=== PATIENT | female | born 1955 | race Caucasian/White ===

== ENCOUNTER 2019-09-17 14:42 | Emergency (ER) | payer OTHER, SELFPAY ==
--- NOTE | ~2019-09-17 | XR_ITS ---
XR knee RT 3V DATE: 09/17/2019 15:31 INDICATION: Twisted knee twice; lateral pain TECHNIQUE: 3 views COMPARISON: None FINDINGS: No fracture or dislocation, periosteal reaction or bone destruction. No significant joint effusion is detected. Joint spaces are well preserved. No chondrocalcinosis or radiopaque intra-art icular loose body. IMPRESSION: No significant abnormality Reviewed, dictated and finalized at location A. IMPRESSION: No significant abnormality
[2019-09-17 15:03] VITALS: BP 127/88; PULSE 94; RESP 16; TEMP 37.2; O2SAT 99
--- NOTE | 2019-09-17 15:04 | ED.LOWEXIN ---
HPI - Extremity Injury (Lower) General Chief Complaint: Extremity Injury, Lower Stated Complaint: injury knee pain Time Seen by Provider: 09/17/19 15:00 Source: patient Mode of arrival: ambulatory Limitations: no limitations History of Present Illness HPI Narrative: Rosie Miller is a 54 yo female with no PMH who comes to express care for x-ray of right knee after straining it last week while working outside and straining again yesterday. Mild swelling, states is painful particularly to try to stand up and bed feels like it needs support and feels like it is unstable on lateral side Related Data Allergies Allergy/AdvReac Type Severity Reaction Status Date / Time No Known Allergies Allergy Verified 09/17/19 15:03 Review of Systems Review of Systems: Narrative: CONSTITUTIONAL: Denies fever, chills, sweats. EYES: Denies visual changes, redness, discharge. ENT: Denies rhinorrhea, congestion, sore throat, otalgia. CARDIOVASCULAR: Denies chest pain, palpitations, edema. RESPIRATORY: Denies dyspnea, wheezing, cough GASTROINTESTINAL: Denies abdominal pain, nausea, vomiting, diarrhea. GENITOURINARY: Denies dysuria, hematuria, abnormal discharge SKIN: Denies rash or itching. NEUROLOGIC: Denies numbness, or focal weakness. PSYCHIATRIC: Denies anxiety or depression. Extremity: Right knee pain and swelling PMFSH Family History Family History Other No acute medical problems Social History Social History (Updated 09/17/19 @ 15:15 by Rossy Edwards CNP) Smoking status: Never smoker Alcohol intake: never Comments At time of signature, I agree with nursing past medical, surgical, social and family history. There is no relevant family history pertinent to the presenting complaint. Exam Narrative: Exam Narrative: GENERAL: This is a well-nourished, well-developed patient, in mild distress. HEAD: normocephalic, atraumatic. EYES: Sclera clear/white. Vision is grossly intact. EARS: External ears normal, . Hearing grossly intact. NOSE: External nose normal without nasal discharge, nares without redness, no rhinorrhea. THROAT: Mucous membranes moist, NECK: Neck supple, CARDIOVASCULAR: Regular rate and rhythm without murmurs, gallops, or rubs. RESPIRATORY: Clear to auscultation. Breath sounds equal bilaterally. No wheezes, rales, or rhonchi. GASTROINTESTINAL: Abdomen soft, SKIN: warm, intact with no suspicious lesions or rash, good texture and turgor. NEURO: awake, alert, and oriented to person, place and time. There were no obvious focal neurologic abnormalities. Steady gait EXTREMITIES: Difficulty with ROM exceed 90 or standing, sitting long periods, describes R lateral pain of knee; sttaes is 10/10 although strength maintained BACK: Nontender without deformity Course Course Emergency Course: Xray R knee megaive for acute pathology naprosyn and tramadol; follow up with orthopedist Vital Signs Vital signs: Vital Signs Temperature 99.0 F 09/17/19 15:03 Pulse Rate 94 09/17/19 15:03 Respiratory Rate 16 09/17/19 15:03 Blood Pressure 127/88 09/17/19 15:03 Pulse Oximetry 99 09/17/19 15:03 Temperature 99.0 F 09/17/19 15:03 Pulse Rate 94 09/17/19 15:03 Respiratory Rate 16 09/17/19 15:03 Blood Pressure 127/88 09/17/19 15:03 Pulse Oximetry 99 09/17/19 15:03 MDM - Extremity Injury (Lower) Differential Diagnosis Differential diagnosis: Likely acute internal derangement of knee and other (sprain of R knee, dislocation of knee) Discharge Plan Discharge Clinical Impression: Right knee sprain Qualifiers: Encounter type: initial encounter Involved ligament of knee: lateral collateral ligament Qualified Code(s): S83.421A - Sprain of lateral collateral ligament of right knee, initial encounter Patient Disposition: Home, Self-Care Condition: Stable Instructions: Knee Sprain (DC) Prescriptions: New naproxen [Naprosyn] 50
== END 2019-09-17 15:57 | disposition home or self-care (01) ==
PROVIDERS: Emergency Provider Nurse Practitioner
DX: S83.421A Sprain of lateral collateral ligament of right knee, initial encounter (principal); X58.XXXA Exposure to other specified factors, initial encounter
CPT/HCPCS: 73562; 99213; G0463

== ENCOUNTER 2019-09-21 22:20 | Inpatient (IN) | payer OTHER, SELFPAY ==
--- NOTE | ~2019-09-21 | MR_ITS ---
EXAMINATION: MR knee RT wo con DATE: 09/24/2019 12:40 INDICATION: Right knee pain. TECHNIQUE: Magnetic resonance imaging (MRI) of the right knee was performed without intravenous contr ast. Sequences included axial PD-weighted FS FSE, coronal PD-weighted FSE and PD-weighted FS FSE, sag ittal PD-weighted FSE, and sagittal T2-weighted FS FSE. COMPARISON: Right knee CT 09/21/2019 FINDINGS: Medial compartment: Medial meniscus is normal. There is cartilage surface irregularity of tibial condyle and femoral cond yle. There are tiny marginal osteophytes. Lateral compartment: Lateral meniscus is normal. There is shallow partial-thickness cartilage loss of femoral condyle and cartilage surface irregularity of tibial condyle. There is a small subchondral insufficiency fracture of femoral condyle with subchondral sclerosis and bone marrow edema, but without significant cortica l depression. Patellofemoral compartment: There is cartilage surface irregularity of patella with mild subchondral edema-like signal intensity of the lateral facet. There is cartilage surface irregularity of trochlea. Ligaments and tendons: The anterior and posterior cruciate ligaments are normal. Medial collateral ligament and lateral juliana ateral ligament complex are normal. There is mild patellar tendinopathy. Fluid: There is a small knee joint effusion. There is trace fluid in a Jose's cyst. IMPRESSION: 1. Subchondral insufficiency fracture of lateral femoral condyle. 2. Mild tricompartmental chondrosis. 3. Small knee joint effusion. Reviewed, dictated and finalized at location A.
--- NOTE | ~2019-09-21 | US_ITS ---
EXAMINATION: US venous doppler LE RT DATE: 09/23/2019 14:07 INDICATION: Right lower limb pain. TECHNIQUE: Grayscale ultrasound images without and with compression and Doppler ultrasound images of the right lower extremity veins were obtained. COMPARISON: CT 09/21/2019 FINDINGS: The visualized portions of right common femoral vein, profunda (deep) femoral vein, femoral vein, and greater saphenous vein outflow are patent. There is thrombus in popliteal, soleus, and peroneal and posterior tibial veins. IMPRESSION: 1. Deep vein thrombosis involving right popliteal, soleus, and peroneal and posterior tibial veins. Reviewed, dictated and finalized at location A. IMPRESSION: 1. Deep vein thrombosis involving right popliteal, soleus, and peroneal and po sterior tibial veins.
--- NOTE | ~2019-09-21 | CT_ITS ---
EXAMINATION: CT knee RT wo con EXAM DATE: 09/21/2019 23:56 INDICATION: Right knee pain, fell twice today. TECHNIQUE: Spiral CT knee RT wo con was performed right knee Axial, coronal and sagittal images were reviewed. The dose-length product (DLP) for this examination was 405.46 mGy-cm. The exposure was t ailored according to patient size (auto mA exposure control), and iterative reconstruction (ASIR) was used as additional dose reduction technique. Correlation is made to x-ray from 09/17/2019. FINDINGS: There are no acute right knee fractures or dislocations identified. There is no subcutaneo us gas. The soft tissue is unremarkable. There are no radiopaque foreign bodies. Trace joint flui d. Cruciate ligaments appear intact. There is minimal primary osteoarthritis. IMPRESSION: Minimal right knee osteoarthritis. Reviewed, dictated and finalized at location A.
--- NOTE | ~2019-09-21 | MR_ITS ---
EXAMINATION: MR lower leg RT wo con DATE: 09/24/2019 12:40 INDICATION: Right knee pain. TECHNIQUE: Magnetic resonance imaging (MRI) of the right tibia and fibula was performed without intra venous contrast. Sequences included axial, coronal, and sagittal T1-weighted FSE and STIR FSE. COMPARISON: Right knee CT 09/21/2019, ultrasound 09/23/2019 FINDINGS: Bone alignment is normal. No fracture. Bone marrow signal intensity is normal. The muscles demonstrate normal signal intensity. The soleus, peroneal, and posterior tibial veins demonstrate are as of enlargement with filling defects correlating with the ultrasound abnormalities, consistent with thrombus. Subcutaneous edema is noted. IMPRESSION: 1. Deep vein thrombosis involving the right soleus, peroneal, and posterior tibial veins. Reviewed, dictated and finalized at location A. IMPRESSION: 1. Deep vein thrombosis involving the right soleus, peroneal, and posterior tib ial veins.
--- NOTE | ~2019-09-21 | XR_ITS ---
EXAMINATION: XR chest 2V DATE: 09/24/2019 12:40 INDICATION: Acute deep vein thrombosis. TECHNIQUE: Frontal and lateral views of the chest were obtained. COMPARISON: None. FINDINGS: There is mild elevation of left hemidiaphragm. There is mild atelectasis at left lung base. No pleural effusion or pneumothorax. The heart size is normal. IMPRESSION: 1. Mild atelectasis at left lung base. Reviewed, dictated and finalized at location A.
--- NOTE | ~2019-09-21 | NM_ITS ---
EXAMINATION: NM pulmonary perfusion DATE: 09/24/2019 11:12 INDICATION: Acute deep vein thrombosis. TECHNIQUE: 5.3 mCi Tc-99m MAA was administered intravenously for perfusion images. Scintigraphic ambreen ges of the chest were obtained. COMPARISON: chest two views 09/24/19 FINDINGS: Perfusion images show large and moderate sized defects in the upper lobes. ] IMPRESSION: 1. Pulmonary embolism present (high probability). Reviewed, dictated and finalized at location A.
[2019-09-21 22:19] VITALS: BP 158/75; PULSE 91; RESP 14; TEMP 36.9; O2SAT 100
--- NOTE | 2019-09-21 22:35 | ED.LOWEXIN ---
HPI - Extremity Injury (Lower) General Chief Complaint: Extremity Injury, Lower Stated Complaint: L KNEE PAIN Time Seen by Provider: 09/21/19 22:23 History of Present Illness HPI Narrative: Pain in the right knee for the past month. Worse for the past week. Had outpatient x-rays done which were negative. Since that time she has not been able to walk. She says that any time she tries to bear weight her involuntarily contracts into her chest. She has fallen twice due t this. When this happens the pain is severe. Related Data Home Medications Medication Instructions Recorded Confirmed aspirin [Adult Low Dose Aspirin] 81 mg PO DAILY 09/22/19 09/22/19 loratadine [Claritin] 10 mg PO DAILY 09/22/19 09/22/19 Allergies Allergy/AdvReac Type Severity Reaction Status Date / Time No Known Allergies Allergy Verified 09/17/19 15:03 Review of Systems Review of Systems: All systems reviewed & are unremarkable except as noted in HPI and below Constitutional: Constitutional: Denies chills, Denies fever(s) and Denies weakness Cardiovascular: Cardiovascular: Denies chest pain Respiratory: Respiratory: Denies dyspnea Gastrointestinal: Gastrointestinal: Denies abdominal pain and Denies nausea Musculoskeletal: Musculoskeletal: Denies back pain and Reports arthralgias Neurologic: Denies dizziness and Denies weakness PMFSH Family History Family History Father Prostate carcinoma Other No acute medical problems Social History Social History Smoking packs per day: 0.5 Smoking cigarettes per day: 10.0 Smoking status: Current every day smoker Tobacco type: cigarettes Second hand tobacco smoke exposure: Yes Alcohol intake: current Drinks per week: 1 Substance use: never Substance use type: does not use Gender identity (if verbalized by the patient): Female Spiritual care concerns: No Exam Const: General: healthy appearing, no acute distress and alert Nutritional Appearance: well nourished Orientation/consciousness: patient oriented x3 HENMT: Head: normal to inspection Resp: Effort & Inspection: normal respiratory effort Auscultation: clear to auscultation bilaterally Cardio: Rate: regular rate Rhythm: regular rhythm Other: 2+ DP on the right Skin: General skin exam: normal color Rashes: no rashes Wounds: no wounds Neuro: General: patient oriented x3, moves all extremities, no focal motor deficits and CN's II-XI intact bilaterally Speech: normal speech Extrem: General: normal to inspection Other: Tender over inferiorlateral right knee. Course Vital Signs Vital signs: Vital Signs Temperature 36.9 C 09/21/19 22:19 Pulse Rate 91 09/21/19 22:19 Respiratory Rate 14 09/21/19 22:19 Blood Pressure 158/75 H 09/21/19 22:19 Pulse Oximetry 100 09/21/19 22:19 Temperature 36.6 C 09/22/19 05:03 Pulse Rate 69 09/22/19 05:03 Respiratory Rate 16 09/22/19 05:03 Blood Pressure 130/65 09/22/19 05:03 Pulse Oximetry 99 09/22/19 05:03 MDM - Extremity Injury (Lower) MDM Narrative Medical decision making narrative: Reviewed negative x-ray. CT obtained to ruleout occult fracture. attempted ambulation without success. Tried small dose of valium to prevent spasm. again she fell back into the bed crying. She lives alone and will not be able to be discharged if she cannot ambulate. Medical Records Attestation: I reviewed the patient's medical records. Discharge Plan Discharge Clinical Impression: Right knee pain, Ambulatory dysfunction Interventions: Discharge Disposition Last Done: 09/22/19 04:38 IV Stop Time Documented Last Done: 09/22/19 04:38 Discharge Date/Time: 09/22/19 04:35
--- NOTE | 2019-09-22 01:16 | PC.NURSE ---
Patient tried to put weight on right knee during ambulation assessment. Once patient put weight on knee, she sat back in bed and drove her knee into her chest. Patient stated the pain is too much and said now you see what happens. DEE Antunez notified.
[2019-09-22 01:38] VITALS: BP 138/75; PULSE 82; RESP 16; O2SAT 100
--- NOTE | 2019-09-22 03:37 | PC.NURSE ---
Report taken from JASWANT Lee.
[2019-09-22 04:38] VITALS: BP 147/71; PULSE 84; RESP 18; O2SAT 97
[2019-09-22 05:03] VITALS: BP 130/65; PULSE 69; RESP 16; TEMP 36.6; O2SAT 99
--- NOTE | 2019-09-22 05:44 | PM.IMHP ---
H&P: HPI History of Present Illness Chief complaint: Ambulatory dysfunction, knee pain Narrative: This is a 64 year old female with known seasonal allergies who presented to the hospital with a complaint of right knee pain and ambulatory dysfunction. She began having right knee pain approximately 2 weeks ago after gardening outside. She continued to have right knee pain while at work last week but was able to still ambulate. She describes that she has suffered various falls secondary to her right leg spasming and her knee retracting forcefully and striking her chest. She first experienced this when she was going up a step but then also experienced it last night while just standing. She could not tolerate ambulating and has not been able to bear weight on her right leg. She denies any trauma or injury to her right knee. She has never had any surgery or procedures done on her right knee. She also denies any fever, chills, swelling of her right knee, leg redness or edema. ER provider has obtained a right knee CT scan which does not demonstrate any small fractures. The patient has no other complaints. We have been asked to admit the patient to the hospital as she has ambulatory dysfunction. Review of Systems Review of Systems: All systems reviewed & are unremarkable except as noted in HPI and below PMFSH Past Medical History Medical History Iliotibial band syndrome affecting right lower leg Family History Family History Father Prostate carcinoma Other No acute medical problems Social History Social History Smoking packs per day: 0.5 Smoking cigarettes per day: 10.0 Smoking status: Current every day smoker Tobacco type: cigarettes Second hand tobacco smoke exposure: Yes Alcohol intake: current Drinks per week: 1 Substance use: never Substance use type: does not use Occupation/Education: occupation 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[place] Gender identity (if verbalized by the patient): Female Spiritual care concerns: No Meds Home Medications and Allergies Home Medications Medication Instructions Recorded Confirmed Type naproxen [Naprosyn] 500 mg PO BID PRN #20 tablet 09/17/19 09/22/19 Rx aspirin [Adult Low Dose Aspirin] 81 mg PO DAILY 09/22/19 09/22/19 History loratadine [Claritin] 10 mg PO DAILY 09/22/19 09/22/19 History Allergies Allergy/AdvReac Type Severity Reaction Status Date / Time No Known Allergies Allergy Verified 09/17/19 15:03 Vital Signs Vital Signs - 24 hr 09/21/19 22:19 09/22/19 01:38 09/22/19 04:38 Temperature 36.9 C Pulse Rate 91 82 84 Respiratory Rate 14 16 18 Blood Pressure 158/75 H 138/75 147/71 H Pulse Oximetry 100 100 97 09/22/19 05:03 Temperature 36.6 C Pulse Rate 69 Respiratory Rate 16 Blood Pressure 130/65 Pulse Oximetry 99 Exam Const: General: cooperative, no acute distress, alert and awake Nutritional Appearance: well nourished Orientation/consciousness: patient oriented x3 HENMT: Head: normal to inspection General nose exam: Normal external nose present Face and sinus: normal facial exam Mouth: Yes Normal oral and palatal mucosa present and Yes oropharynx normal Eyes: Pupils: Equal, round and reactive pupils present EOM: EOMs intact bilaterally Neck: Neck: supple and no JVD Thyroid: thyroid normal Lymphatic: lymphadenopathy not noted Resp: Effort & Inspection: normal respiratory effort Auscultation: clear to auscultation bilaterally Cardio: Rate: regular rate Rhythm: regular rhythm Heart sounds: no murmurs GI: Inspection: normal to inspection Auscultation: normal bowel sounds Skin: General skin exam: normal color and no rashes or lesions noted Neuro: General: patient oriented x3 Cranial nerves: Ye
[2019-09-22 06:00] VITALS: BP 130/65; PULSE 69; RESP 16; TEMP 36.6; O2SAT 99
[2019-09-22 07:49] LABS: Basophils Absolute Auto 0.1 K/mm3 (0.0-0.1); Basophils Percent Auto 0.8 % (0.2-1.2); Eosinophils Absolute Auto 0.2 K/mm3 (0-0.3); Eosinophils Percent Auto 2.7 % (0-4.4); Hematocrit 38.5 % (37.0-47.0); Hemoglobin 12.7 g/dL (12.0-15.0); Immature Granulocyte Absolute 0.04 K/mm3 (0.00-0.031); Immature Granulocyte Percent A 0.5 % (0-0.5); Lymphocytes Absolute Auto 2.67 K/mm3 (0.9-3.2); Lymphocytes Percent Auto 30.9 % (18.3-44.2); Mean Corpuscular Volume 93.9 fl (80-100); Mean Platelet Volume 11.1 fl (7.4-10.4); Monocytes Absolute Auto 0.9 K/mm3 (0.1-0.6); Neutrophils Absolute Auto 4.8 K/mm3 (1.3-6.7); Neutrophils Percent Auto 55.1 % (45.5-73.1); Platelet Count Result 247 k/mm3 (150-375); Red Cell Distribution Width 14.3 % (11.5-14.5); White Blood Count 8.6 K/mm3 (4.5-10.0)
[2019-09-22 08:01] LABS: Blood Urea Nitrogen 10 mg/dL (7-17); Carbon Dioxide 28 mmol/L (22-30); Chloride 104 mmol/L (98-107); Estimated CRCL calculation 97 ml/min; Estimated Glomerular Filt Rate > 60; Glucose 99 mg/dL (65-105); Potassium 3.5 mmol/L (3.4-5.0); Sodium 139 mmol/L (137-145)
--- NOTE | 2019-09-22 10:10 | PC.NURSE ---
Call to pharmacy and requested 0900 Aspirin be sent to floor for administration.
[2019-09-22] MEDS: LORATADINE 10 MG TABLET PO (10:11)
[2019-09-22] MEDS: NAPROXEN 500 MG TABLET PO (10:12)
--- NOTE | 2019-09-22 10:17 | PM.CNOR ---
Assessment and Plan Assessment and plan (1) Iliotibial band syndrome affecting right lower leg: Code(s): M76.31 - Iliotibial band syndrome, right leg Status: Acute Assessment and Plan: Consultation for 64-year-old woman with acute onset right knee pain and involuntary spasm. Radiographs and CT scan of the right knee show no acute abnormality. History and physical exam reviewed with the patient. Suspect iliotibial band tightness and pain causing spasm and difficulty with ambulation. Recommend physical therapy and pain control with weight-bearing as tolerated. No surgical indication at this time. Thank you for allowing me to participate in her care. (2) Right knee pain: Qualifiers: Chronicity: acute Qualified Code(s): M25.561 - Pain in right knee Code(s): M25.561 - Pain in right knee Status: Acute History of Present Illness HPI Consult date: 09/22/19 Requesting physician: Donnie Reese MD Chief complaint: Ambulatory dysfunction, knee pain Narrative: Pleasant 64-year-old female that I have been asked to see in consultation for right knee pain and involuntary spasm of the leg. Patient states about 2 weeks ago was doing some work in her garden and yd. Noted strain in both knees. The left 1 resolved. The right 1 however has continued to progress with pain over the lateral aspect. It is sharp shooting radiating type pain. She had difficulty with work last week and presented to the [facility]. Radiographs were reportedly negative. She tried using a knee support and some conservative measures. She return to work on September 18, however had increased pain with weight-bearing and developed an involuntary spasm where the hip and knee would flex up. Yesterday she was unable to put weight on the right leg and had difficulty with ambulation. She presented to the emergency room. Pain with weight-bearing has persisted. She denies low back pain. Denies numbness or tingling. She states that the right leg feels weak but otherwise notes no focal weakness. No problems with the left leg. She has noted some right ankle and foot swelling and strain since all of the started and has been using an ankle support over the past 2 days. Review of Systems Constitutional: Constitutional: Denies fever(s) Eyes: Eyes: Denies blurry vision ENT: Reports Normal hearing present Cardiovascular: Cardiovascular: Denies chest pain and Denies dyspnea Respiratory: Respiratory: Denies dyspnea and Denies wheezing Gastrointestinal: Gastrointestinal: Denies abdominal pain Genitourinary: Genitourinary: Denies urinary urgency Musculoskeletal: Musculoskeletal: Reports as per HPI and Denies numbness Integumentary/Breasts: Skin/Breast: Denies changing lesions and Denies sores Neurologic: Reports Normal hearing present, Denies behavioral changes, Denies confusion, Denies numbness and Denies convulsions Psychiatric: Psychiatric: Denies behavioral changes, Denies confusion and Denies hallucinations Endocrine: Endocrine: Denies heat intolerance Hematologic/Lymphatic: Hematologic/Lymphatic: Denies easy bleeding Allergic/Immunologic: Allergic/Immunologic: Denies wheezing PMFSH Family History Family History Father Prostate carcinoma Other No acute medical problems Social History Social History (Updated 09/22/19 @ 10:20 by Ted Neal MD) Smoking packs per day: 0.5 Smoking cigarettes per day: 10.0 Smoking status: Current every day smoker Tobacco type: cigarettes Second hand tobacco smoke exposure: Yes Alcohol intake: current Drinks per week: 1 Substance use: never Substance use type: does not use Occupation/Education: occupation 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
--- NOTE | 2019-09-22 11:19 | PM.IMPN ---
Progress Note: A&P Assessment and Plan (1) Iliotibial band syndrome affecting right lower leg: Code(s): M76.31 - Iliotibial band syndrome, right leg Status: Acute Assessment and Plan: Seen by orthopedic, continue PT/OT, continue pain control, hopeful discharge tomorrow, pt not able to weight bear today. (2) Right knee pain: Qualifiers: Chronicity: acute Qualified Code(s): M25.561 - Pain in right knee Code(s): M25.561 - Pain in right knee Status: Acute Assessment and Plan: The patient has been admitted for observation. 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 Pt is very upset that she cannot walk, states her leg just contracted under her. Seen by orthopedic pt has ITB, will need physical theraphy prior to dischrage, hopeful discharge tomorrow. Review of Systems Integumentary/Breasts: Comments: Leg pain, contracture of leg, immobility Exam Const: General: cooperative, no acute distress, alert and awake Nutritional Appearance: well nourished Orientation/consciousness: patient oriented x3 Resp: Effort & Inspection: normal respiratory effort Auscultation: clear to auscultation bilaterally Cardio: Rate: regular rate Rhythm: regular rhythm Heart sounds: no murmurs GI: Inspection: normal to inspection Auscultation: normal bowel sounds Neuro: General: patient oriented x3 Cranial nerves: Yes CN's II-XII intact bilaterally and Yes Equal, round and reactive pupils present Speech: normal speech Motor exam (neuro): 5/5 motor strength present throughout Sensory Exam: normal sensation Extrem: General: normal to inspection and no edema Right lower extremity: normal to inspection (Localised lateral tenderness no laxity in joint on ACL and MCL exam ) Objective Data Vital Signs Vital Signs: Vital Signs - 24 hr 09/21/19 22:19 09/22/19 01:38 09/22/19 04:38 Temperature 36.9 C Pulse Rate 91 82 84 Respiratory Rate 14 16 18 Blood Pressure 158/75 H 138/75 147/71 H Pulse Oximetry 100 100 97 09/22/19 05:03 09/22/19 06:00 Temperature 36.6 C 36.6 C Pulse Rate 69 69 Respiratory Rate 16 16 Blood Pressure 130/65 130/65 Pulse Oximetry 99 99 Intake/Output Intake/Output: Intake & Output 09/19/19 09/20/19 09/21/19 09/22/19 23:59 23:59 23:59 23:59 Intake Total 240 Output Total 0 Balance 240 Meds/Results Medications: Active Medications Generic Name Dose Route Start Last Admin Trade Name Freq PRN Reason Stop Dose Admin Hydrocodone Bitart/Acetaminophen 1 tab 09/22/19 05:57 09/22/19 06:13 [place] 5-325 Mg PO 1 tab Q4H PRN Administration Moderate Pain (4-6) Aspirin 81 mg 09/22/19 09:00 Aspirin Ec PO DAILY ALEX Cyclobenzaprine HCl 10 mg 09/22/19 03:56 Flexeril PO Q8HR PRN Muscle Spasm Loratadine 10 mg 09/22/19 09:00 09/22/19 10:11 Claritin PO 10 mg DAILY ALEX Administration Lorazepam 0.5 mg 09/22/19 05:56 Ativan Tab PO 09/23/19 07:00 Q6H PRN Anxiety Naproxen 500 mg 09/22/19 05:58 09/22/19 10:12 Naproxen PO 500 mg BID PRN Administration PAIN RATED 1-3 Labs Labs: Laboratory Results - last 24 hr 09/22/19 09/22/19 07:31 07:31 WBC 8.6 RBC 4.10 L Hgb 12.7 Hct 38.5 MCV 93.9 MCH 31.0 MCHC 33.0 RDW 14.3 Plt Count 247 MPV 11.1 H Immature Gran % (Auto) 0.5 Neut % (Auto) 55.1 Lymph % (Auto) 30.9 Sullivan % (Auto) 10.0 H Eos % (Auto) 2.7 Baso % (Auto) 0.8 Lymph # (Auto) 2.67 Sullivan # (Auto) 0.9 H Eos # (Auto) 0.2 Baso # (Auto) 0.1 Abs Immat Gran (auto) 0.04 H Absolute Neuts (auto) 4.8 Absolute Nucleated RBC 0.0 Nucleated RBC % 0.0 Sodium 139 Potassium 3.5 Chloride 104 Carbon Dioxide 28 BUN 10 Creatinine 0.60 L Estim Creat Clear Calc 97 Estimated GFR > 60 Glucose 99 Calciu
--- NOTE | 2019-09-22 11:33 | PC.NURSE ---
Second call to pharmacy to request 0900 dose of Aspirin be sent to floor for administration.
[2019-09-22] MEDS: CYCLOBENZAPRINE HCL 10 MG TABLET PO ×2 (11:35→19:57)
[2019-09-22 14:00] VITALS: BP 116/60; PULSE 86; RESP 20; TEMP 36.8; O2SAT 99
[2019-09-22] MEDS: ASPIRIN 81 MG ENTERIC TABLET PO (14:21)
[2019-09-22 22:00] VITALS: BP 123/70; PULSE 77; RESP 16; TEMP 36.6; O2SAT 97
[2019-09-23] MEDS: LORAZEPAM 0.5 MG TABLET PO ×2 (01:26→22:42)
[2019-09-23] MEDS: CYCLOBENZAPRINE HCL 10 MG TABLET PO ×2 (05:56→20:16)
[2019-09-23 05:58] VITALS: BP 123/67; PULSE 83; RESP 16; TEMP 36.7; O2SAT 96
[2019-09-23] MEDS: ASPIRIN 81 MG ENTERIC TABLET PO (08:40)
[2019-09-23] MEDS: LORATADINE 10 MG TABLET PO (08:40)
--- NOTE | 2019-09-23 10:45 | PM.PNORT ---
Progress Note: A&P Assessment and Plan (1) Iliotibial band syndrome affecting right lower leg: Code(s): M76.31 - Iliotibial band syndrome, right leg Status: Acute Assessment and Plan: Continued complaints of right lateral knee pain and limitations with ambulation due to spasming of the RLE when pressure is applied to the leg. Radiographs and CT scan of the right knee show no acute abnormality. As previously indicated, suspect iliotibial band tightness and pain causing spasm and difficulty with ambulation. Add lidocaine patch to the lateral knee to assist in pain control. Ice. Recommended continuation of physical therapy with weight-bearing as tolerated. Walker for fall prevention. No surgical indication at this time. (2) Right knee pain: Qualifiers: Chronicity: acute Qualified Code(s): M25.561 - Pain in right knee Code(s): M25.561 - Pain in right knee Status: Acute Subjective Subjective Date/Time Seen: 09/23/19 10:45 Patient sitting up in chair. Per patient report, she attempted to work with PT/OT but was unable to walk far. She is not in pain when at rest, only when pressure applied to the RLE. She does not feel the flexeril is workinng for muscle spasms. She is concerned the pain is coming from the hamstring. Review of Systems Constitutional: Constitutional: Denies fever(s) Eyes: Eyes: Denies blurry vision ENT: Reports Normal hearing present Cardiovascular: Cardiovascular: Denies chest pain and Denies dyspnea Respiratory: Respiratory: Denies dyspnea and Denies wheezing Gastrointestinal: Gastrointestinal: Denies abdominal pain Genitourinary: Genitourinary: Denies urinary urgency Musculoskeletal: Musculoskeletal: Reports as per HPI and Denies numbness Integumentary/Breasts: Skin/Breast: Denies changing lesions and Denies sores Neurologic: Reports Normal hearing present, Denies behavioral changes, Denies confusion, Denies numbness and Denies convulsions Psychiatric: Psychiatric: Denies behavioral changes, Denies confusion and Denies hallucinations Endocrine: Endocrine: Denies heat intolerance Hematologic/Lymphatic: Hematologic/Lymphatic: Denies easy bleeding Allergic/Immunologic: Allergic/Immunologic: Denies wheezing Exam Const: General: healthy appearing; No in distress or confusion Orientation/consciousness: oriented to person, oriented to place, oriented to time and No confusion HENMT: Head: normal to inspection, normocephalic and atraumatic Eyes: Conjunctivae: conjunctivae normal Sclera: sclerae normal Neck: Neck: supple and nontender Resp: Effort & Inspection: normal respiratory effort and no audible wheezes Cardio: Rate: regular rate Rhythm: regular rhythm Skin: General skin exam: no rashes or lesions noted Neuro: General: oriented to person, oriented to place, oriented to time and No confusion Extrem: Right upper extremity: normal to inspection Left upper extremity: normal to inspection Right lower extremity: hip/thigh (ROM testing limited due to patient apprehension ) Details: normal to inspection; no tenderness and no swelling, knee Details: tenderness Location: of the lateral joint line and of the lateral joint line; not of the patella, not of the tibial tuberosity, not of the popliteal fossa, not of the medial joint line and not of the proximal tibia, swelling Location: of the proximal fibula and abnormal ROM Details: pain with active ROM during Details: in extension and pain with passive ROM during Details: in extension and foot; no edema Left lower extremity: normal to inspection, normal capillary refill and knee Other: Pain with palpation over the lateral aspect of the knee and proximal fibula. Mild swelling. NO redness/warmth or signs of infection. Psych: Affect: Anxious affect present Objective Data Vital Signs Vital Signs: Vital Signs - 24 hr 09/22/19 14:00 09/22/19 22:00 09/23/19 05:58 Temperature 36.8 C 36.6 C 36.7 C Pu
[2019-09-23] MEDS: LIDOCAINE 5% PATCH 1 PATCH TRANSDERM (10:55)
[2019-09-23 14:00] VITALS: BP 112/61; PULSE 82; RESP 15; TEMP 36.8; O2SAT 98
--- NOTE | 2019-09-23 14:49 | PCPTNOTE ---
The PT treatment was not completed today due to new multipe DVT diagnosis. Will continue once new medication is started and per Plan of Care frequency and duration.
--- NOTE | 2019-09-23 15:18 | PM.IMPN ---
Progress Note: A&P Assessment and Plan (1) Right knee pain: Qualifiers: Chronicity: acute Qualified Code(s): M25.561 - Pain in right knee Code(s): M25.561 - Pain in right knee Status: Acute Assessment and Plan: The patient has been admitted for observation. Pain control as needed. On physical exam it appears the patient may have a lateral meniscus injury or an inflammed right LCL. Ortho consult in am. Continue muscle relaxants as needed. 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 Pt is very upset that she cannot walk, states her leg just contracts below her right knee and fall, patient deneis any direct trauma, however patient was working in her yard for 12hrs 2 weeks prior to starting of her symptoms, she has difficulty with ambulation, Seen by orthopedic pt has ITB, recommending conservative managemtn, to further evaluate patient had dopplor of right leg and has DVT, will start on eliquis, will go V/Q scan, patient may need EMG of the leg, will consult neurologist, will need physical theraphy prior to dischrage, (2) Ambulatory dysfunction: Code(s): R26.2 - Difficulty in walking, not elsewhere classified Status: Acute Assessment and Plan: PT/OT evaluation when approrpiate. (3) Seasonal allergies: Code(s): J30.2 - Other seasonal allergic rhinitis Status: Chronic Assessment and Plan: Continue claritin. (4) Tobacco dependence: Code(s): F17.200 - Nicotine dependence, unspecified, uncomplicated Status: Chronic Assessment and Plan: I have counseled the patient regarding tobacco cessation for 4 minutes. She verbalized her agreement and understanding of same. 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 Pt is very upset that she cannot walk, states her leg just contracts below her right knee and fall, patient deneis any direct trauma, however patient was working in her yard for 12hrs 2 weeks prior to starting of her symptoms, she has difficulty with ambulation, Seen by orthopedic pt has ITB, recommending conservative managemtn, to further evaluate patient had dopplor of right leg and has DVT, will start on eliquis, will go V/Q scan, patient may need EMG of the leg, will consult neurologist, will need physical theraphy prior to dischrage, Review of Systems Review of Systems: All systems reviewed & are unremarkable except as noted in HPI and below Exam Const: General: comfortable and no acute distress HENMT: General nose exam: Normal nares present Mouth: Yes moist mucous membranes Eyes: General: appearance normal, both eyes and all related structures Sclera: sclerae normal Resp: Effort & Inspection: normal respiratory effort Auscultation: clear to auscultation bilaterally Cardio: Rate: regular rate Rhythm: regular rhythm GI: Other: not distended Neuro: Speech: normal speech Sensory Exam: normal sensation Extrem: Other: right lower extremity there no swelling, erythema or induration, patient is able siting in the chair able to flex and extend the knee and cross right leg over to left leg without any symptoms Psych: Affect: Anxious affect present Objective Data Vital Signs Vital Signs: Vital Signs - 24 hr 09/22/19 22:00 09/23/19 05:58 09/23/19 14:00 Temperature 97.9 F 98.1 F 98.2 F Pulse Rate 77 83 82 Respiratory Rate 16 16 15 Blood Pressure 123/70 123/67 112/61 Pulse Oximetry 97 96 98 Intake/Output Intake/Output: Intake & Output 09/20/19 09/21/19 09/22/19 09/23/19 23:59 23:59 23:59 23:59 Intake Total 1430 920 Output Total 1350 1200 Balance 80 -280 Meds/Results Medications: Active Medications Generic Name Dose Route Start Last Admin Trade Name Freq PRN Reason Stop Dose Admin Hydrocodone Bitart/Acetaminophen 1 tab 09/22/19 05:57 09/23/19 08:44 [place] 5-325 Mg PO 1 tab Q4H GA
[2019-09-23 20:00] VITALS: PULSE 82; RESP 15; O2SAT 98
[2019-09-23] MEDS: APIXABAN 5 MG TABLET 10 MG PO (20:13)
[2019-09-23 22:00] VITALS: BP 121/64; PULSE 73; RESP 18; TEMP 37.2; O2SAT 97
[2019-09-24 06:00] VITALS: BP 111/67; PULSE 76; RESP 18; TEMP 36.7; O2SAT 93
--- NOTE | 2019-09-24 07:49 | PM.PNORT ---
Progress Note: A&P Assessment and Plan (1) Iliotibial band syndrome affecting right lower leg: Code(s): M76.31 - Iliotibial band syndrome, right leg Status: Acute Assessment and Plan: Continued complaints of right lateral knee pain and limitations with ambulation due to spasming of the RLE when pressure is applied to the leg. Radiographs and CT scan of the right knee show no acute abnormality. As previously indicated, suspect iliotibial band tightness and pain causing spasm and difficulty with ambulation. Lidocaine patch to the lateral knee to assist in pain control. Ice. Recommended continuation of physical therapy with weight-bearing as tolerated. Walker for fall prevention. No surgical indication at this time. (2) Right knee pain: Qualifiers: Chronicity: acute Qualified Code(s): M25.561 - Pain in right knee Code(s): M25.561 - Pain in right knee Status: Acute (3) DVT of lower extremity (deep venous thrombosis): Qualifiers: Affected thrombotic vein of extremity: peroneal Chronicity: acute Laterality: right Qualified Code(s): I82.451 - Acute embolism and thrombosis of right peroneal vein Code(s): I82.409 - Acute embolism and thrombosis of unspecified deep veins of unspecified lower extremity Status: Acute Assessment and Plan: Ultrasound yesterday shows DVT of the right lower leg veins. Anticoagulation started. Will sign off at this time. Follow-up with primary care physician for DVT and anticoagulation recommended. Subjective Subjective Date/Time Seen: 09/24/19 07:49 Right knee pain. Ultrasound test of the right leg done yesterday shows DVT of the lower leg veins. Patient with no history or family history of DVT. Review of Systems Constitutional: Constitutional: Denies fever(s) Eyes: Eyes: Denies blurry vision ENT: Reports Normal hearing present Cardiovascular: Cardiovascular: Denies chest pain and Denies dyspnea Respiratory: Respiratory: Denies dyspnea and Denies wheezing Gastrointestinal: Gastrointestinal: Denies abdominal pain Genitourinary: Genitourinary: Denies urinary urgency Musculoskeletal: Musculoskeletal: Reports as per HPI and Denies numbness Integumentary/Breasts: Skin/Breast: Denies changing lesions and Denies sores Neurologic: Reports Normal hearing present, Denies behavioral changes, Denies confusion, Denies numbness and Denies convulsions Psychiatric: Psychiatric: Denies behavioral changes, Denies confusion and Denies hallucinations Endocrine: Endocrine: Denies heat intolerance Hematologic/Lymphatic: Hematologic/Lymphatic: Denies easy bleeding Allergic/Immunologic: Allergic/Immunologic: Denies wheezing Exam Const: General: healthy appearing; No in distress or confusion Orientation/consciousness: oriented to person, oriented to place, oriented to time and No confusion HENMT: Head: normal to inspection, normocephalic and atraumatic Eyes: Conjunctivae: conjunctivae normal Sclera: sclerae normal Neck: Neck: supple and nontender Resp: Effort & Inspection: normal respiratory effort and no audible wheezes Cardio: Rate: regular rate Rhythm: regular rhythm Skin: General skin exam: no rashes or lesions noted Neuro: General: oriented to person, oriented to place, oriented to time and No confusion Extrem: Right upper extremity: normal to inspection Left upper extremity: normal to inspection Right lower extremity: hip/thigh (ROM testing limited due to patient apprehension ) Details: normal to inspection; no tenderness and no swelling, knee Details: tenderness Location: of the lateral joint line and of the lateral joint line; not of the patella, not of the tibial tuberosity, not of the popliteal fossa, not of the medial joint line and not of the proximal tibia, swelling Location: of the proximal fibula and abnormal ROM Details: pain with active ROM during Details: in extension and pain with passive ROM during
[2019-09-24 07:58] LABS: Hematocrit 38.7 % (37.0-47.0); Hemoglobin 12.7 g/dL (12.0-15.0); Mean Corpuscular HGB Conc 32.8 g/dl (32-36); Mean Corpuscular Hemoglobin 30.5 pg (26-34); Mean Corpuscular Volume 92.8 fl (80-100); Mean Platelet Volume 11.2 fl (7.4-10.4); Platelet Count Result 227 k/mm3 (150-375); Red Blood Count 4.17 M/mm3 (4.2-5.4); Red Cell Distribution Width 13.9 % (11.5-14.5); White Blood Count 7.8 K/mm3 (4.5-10.0)
[2019-09-24 08:09] LABS: Blood Urea Nitrogen 10 mg/dL (7-17); Carbon Dioxide 30 mmol/L (22-30); Chloride 103 mmol/L (98-107); Estimated CRCL calculation 97 ml/min; Estimated Glomerular Filt Rate > 60; Glucose 96 mg/dL (65-105); Potassium 3.8 mmol/L (3.4-5.0); Sodium 138 mmol/L (137-145)
[2019-09-24] MEDS: LORATADINE 10 MG TABLET PO (08:59)
[2019-09-24] MEDS: APIXABAN 5 MG TABLET 10 MG PO ×2 (08:59→20:26)
[2019-09-24] MEDS: LIDOCAINE 5% PATCH 1 PATCH TRANSDERM (08:59)
[2019-09-24] MEDS: ASPIRIN 81 MG ENTERIC TABLET PO (09:00)
[2019-09-24] MEDS: CYCLOBENZAPRINE HCL 10 MG TABLET PO ×2 (09:03→20:26)
--- NOTE | 2019-09-24 12:53 | PCPTNOTE ---
PT treatment not completed today, physical therapy temporarily on hold. Per Dr Smith no (R) LE exercise or ambulation at this time pending management of (R) LE DVTs.
[2019-09-24 14:00] VITALS: BP 106/58; PULSE 83; RESP 16; TEMP 37.3; O2SAT 99
--- NOTE | 2019-09-24 16:29 | PM.IMPN ---
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 Pt is very upset that she cannot walk, states her leg just contracts below her right knee and fall, patient deneis any direct trauma, however patient was working in her yard for 12hrs 2 weeks prior to starting of her symptoms, she has difficulty with ambulation, Seen by orthopedic pt has ITB, recommending conservative managemtn, to further evaluate patient had dopplor of right leg and has DVT, started on eliquis, V/Q scan showed patient has PE, will do cardiac ECHO, patient may need EMG of the leg, will consult neurologist, today patient had an MRI of the right knee which showed possible stress fracture but the orthopedics does suspect it is a fractures and surgical intervention is needed, recommending PT therapy and wt bearing as tolerated. patient denies any CP, shortness of breath, fever or chills, will monitor 1 more day have patient worked with PT and discharge home tomorrow. (2) Ambulatory dysfunction: Code(s): R26.2 - Difficulty in walking, not elsewhere classified Status: Acute Assessment and Plan: PT/OT evaluation when approrpiate. (3) Seasonal allergies: Code(s): J30.2 - Other seasonal allergic rhinitis Status: Chronic Assessment and Plan: Continue claritin. (4) Tobacco dependence: Code(s): F17.200 - Nicotine dependence, unspecified, uncomplicated Status: Chronic Assessment and Plan: I have counseled the patient regarding tobacco cessation for 4 minutes. She verbalized her agreement and understanding of same. 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 Pt is very upset that she cannot walk, states her leg just contracts below her right knee and fall, patient deneis any direct trauma, however patient was working in her yard for 12hrs 2 weeks prior to starting of her symptoms, she has difficulty with ambulation, Seen by orthopedic pt has ITB, recommending conservative managemtn, to further evaluate patient had dopplor of right leg and has DVT, started on eliquis, V/Q scan showed patient has PE, will do cardiac ECHO, patient may need EMG of the leg, will consult neurologist, today patient had an MRI of the right knee which showed possible stress fracture but the orthopedics does suspect it is a fractures and surgical intervention is needed, recommending PT therapy and wt bearing as tolerated. patient denies any CP, shortness of breath, fever or chills, will monitor 1 more day have patient worked with PT and discharge home tomorrow. Review of Systems Review of Systems: All systems reviewed & are unremarkable except as noted in HPI and below Exam Const: General: comfortable and no acute distress HENMT: General nose exam: Normal nares present Mouth: Yes moist mucous membranes Eyes: General: appearance normal, both eyes and all related structures Sclera: sclerae normal Neck: Other: no retraction Resp: Effort & Inspection: normal respiratory effort Auscultation: clear to auscultation bilaterally Cardio: Rate: regular rate Rhythm: regular rhythm GI: Other: not distended Skin: General skin exam: normal color Neuro: Speech: normal speech Sensory Exam: normal sensation Extrem: Other: right knee there is no sign of trauma, while sitting patient is able, to flex and extend the knee with minimal pain, painful along lateral aspect. Psych: Affect: Anxious affect present Objective Data Vital Signs Vital Signs: Vital Signs - 24 hr 09/23/19 20:00 09/23/19 22:00 09/24/19 06:00 Temperature 99.0 F 98.0 F Pulse Rate 82 73 76 Respiratory Rate 15 18 18 Blood Pressure
[2019-09-24 22:00] VITALS: BP 107/70; PULSE 70; RESP 16; TEMP 36.5; O2SAT 99
--- NOTE | 2019-09-25 | ECHO_ITS ---
Patient Info Name: Rosie Miller Age: 64 years : 1955 Gender: Female Ht: 67 in Wt: 204 lbs BSA: 2.12 m2 HR: 80 bpm BP: 106 / 52 mmHg Heart Rhythm: Sinus Rhythm Technical Quality: Good Exam Date: 09/25/2019 8:10 AM Exam Location: [facility] Card Pulmonary Patient Status: Inpatient Admit Date: 09/24/2019 Staff Ordering Physician: Mirella Smith MD Manager Web: Ja Walls, RDCS, RT Attending Provider: Donnie Reese MD Exam Type: CA echo doppler color flow Study Info Indications I26.99 - Other pulmonary embolism without acute cor pulmonale Complete two-dimensional, color flow and Doppler transthoracic echocardiogram is performed. Summary 1. Left ventricular systolic function is normal, estimated at 60-65%. 2. The left ventricular diastolic function is grade I diastolic dysfunction. 3. Right ventricle is not well visualized although size and function probably normal based upon visualized segments. 4. Left atrial chamber dimension is normal. 5. Right atrial chamber dimension is normal. 6. There is no aortic valve stenosis. 7. There is trace mitral valve regurgitation. 8. No pulmonary hypertension, estimated pulmonary arterial systolic pressure is 30 mmHg. 9. There is trace tricuspid valve regurgitation. 10. Normal inferior vena cava with >50% collapse upon inspiration consistent with normal right atrial pressure, 5 mmHg. Left Ventricle Left ventricular chamber dimension is normal. Left ventricular systolic function is normal, estimated at 60-65%. There is no increased left ventricular wall thickness. Left ventricular septal wall motion is abnormal with septal motion related to bundle branch block. The left ventricular diastolic function is grade I diastolic dysfunction. Right Ventricle Right ventricle is not well visualized although size and function probably normal based upon visualized segments. Left Atria Left atrial chamber dimension is normal. Right Atria Right atrial chamber dimension is normal. Aortic Valve The aortic valve is trileaflet. There is no aortic valve stenosis. There is no aortic valve regurgitation. Pulmonic Valve The pulmonic valve is not well visualized. Mitral Valve The mitral valve has normal leaflets. There is trace mitral valve regurgitation. Tricuspid Valve The tricuspid valve leaflets are normal. There is trace tricuspid valve regurgitation. No pulmonary hypertension, estimated pulmonary arterial systolic pressure is 30 mmHg. Pericardium/Pleural The pericardium appears normal. There is no pericardial effusion. Inferior Vena Cava Normal inferior vena cava with >50% collapse upon inspiration consistent with normal right atrial pressure, 5 mmHg. Aorta The aortic root size at the sinus of Valsalva is normal. Left Ventricular Outflow Tract Name Value Normal LVOT 2D LVOT Diameter 1.9 cm LVOT Doppler LVOT Peak Gradient 4 mmHg LVOT Mean Gradient 2 mmHg LVOT VTI 18 cm LVOT VTI/AV VTI Ratio 0.7 LVOT Stroke Volume
[2019-09-25] MEDS: LORAZEPAM 0.5 MG TABLET PO (00:50)
[2019-09-25 06:00] VITALS: BP 106/52; PULSE 72; RESP 16; TEMP 36.4; O2SAT 100
[2019-09-25] MEDS: APIXABAN 5 MG TABLET 10 MG PO (08:06)
[2019-09-25] MEDS: ASPIRIN 81 MG ENTERIC TABLET PO (08:06)
[2019-09-25] MEDS: LORATADINE 10 MG TABLET PO (08:07)
[2019-09-25] MEDS: LIDOCAINE 5% PATCH 1 PATCH TRANSDERM (08:07)
[2019-09-25 08:28] LABS: Hematocrit 39.5 % (37.0-47.0); Hemoglobin 12.9 g/dL (12.0-15.0); Mean Corpuscular HGB Conc 32.7 g/dl (32-36); Mean Corpuscular Hemoglobin 30.4 pg (26-34); Mean Corpuscular Volume 92.9 fl (80-100); Mean Platelet Volume 11.5 fl (7.4-10.4); Platelet Count Result 219 k/mm3 (150-375); Red Blood Count 4.25 M/mm3 (4.2-5.4); Red Cell Distribution Width 14.1 % (11.5-14.5); White Blood Count 6.7 K/mm3 (4.5-10.0)
[2019-09-25 08:47] LABS: Blood Urea Nitrogen 12 mg/dL (7-17); Carbon Dioxide 32 mmol/L (22-30); Chloride 101 mmol/L (98-107); Estimated CRCL calculation 97 ml/min; Estimated Glomerular Filt Rate > 60; Glucose 110 mg/dL (65-105); Sodium 137 mmol/L (137-145)
--- NOTE | 2019-09-25 12:17 | PM.DS ---
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 Pt is very upset that she cannot walk, states her leg just contracts below her right knee and fall, patient deneis any direct trauma, however patient was working in her yard for 12hrs 2 weeks prior to starting of her symptoms, she has difficulty with ambulation, Seen by orthopedic pt has ITB, recommending conservative managemtn, to further evaluate patient had dopplor of right leg and has DVT, started on eliquis, V/Q scan showed patient has PE, will do cardiac ECHO, patient may need EMG of the leg, will consult neurologist, today patient had an MRI of the right knee which showed possible stress fracture but the orthopedics does suspect it is a fractures and surgical intervention is needed, recommending PT therapy and wt bearing as tolerated. patient denies any CP, shortness of breath, fever or chills, will monitor 1 more day have patient worked with PT and discharge home tomorrow. (2) Ambulatory dysfunction: Code(s): R26.2 - Difficulty in walking, not elsewhere classified Status: Acute Assessment and Plan: PT/OT evaluation when approrpiate. (3) Seasonal allergies: Code(s): J30.2 - Other seasonal allergic rhinitis Status: Chronic Assessment and Plan: Continue claritin. (4) Tobacco dependence: Code(s): F17.200 - Nicotine dependence, unspecified, uncomplicated Status: Chronic Assessment and Plan: I have counseled the patient regarding tobacco cessation for 4 minutes. She verbalized her agreement and understanding of same. DS: Summary Hospital Course Reason for hospitalization: This is a 64 year old female with known seasonal allergies who presented to the hospital with a complaint of right knee pain and ambulatory dysfunction. She began having right knee pain approximately 2 weeks ago after gardening outside. She continued to have right knee pain while at work last week but was able to still ambulate. She describes that she has suffered various falls secondary to her right leg spasming and her knee retracting forcefully and striking her chest. She first experienced this when she was going up a step but then also experienced it last night while just standing. She could not tolerate ambulating and has not been able to bear weight on her right leg. She denies any trauma or injury to her right knee. She has never had any surgery or procedures done on her right knee. She also denies any fever, chills, swelling of her right knee, leg redness or edema. ER provider has obtained a right knee CT scan which does not demonstrate any small fractures. The patient has no other complaints. We have been asked to admit the patient to the hospital as she has ambulatory dysfunction. 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 Pt is very upset that she cannot walk, states her leg just contracts below her right knee and fall, patient deneis any direct trauma, however patient was working in her yard for 12hrs 2 weeks prior to starting of her symptoms, she has difficulty with ambulation, Seen by orthopedic pt has ITB, recommending conservative managemtn, to further evaluate patient had dopplor of right leg and has DVT, started on eliquis, V/Q scan showed patient has PE, will do cardiac ECHO, patient may need EMG of the leg, will consult neurologist, today patient had an MRI of the right knee which showed possible stress fracture but the orthopedics does suspect it is a fractures and surgical intervention is needed, recommending PT therapy and wt beari
[2019-09-25 14:00] VITALS: BP 123/58; PULSE 82; RESP 18; TEMP 36.7; O2SAT 100
== END 2019-09-25 14:50 | disposition home or self-care (01) | DRG 543 ==
LOC: ANHED 23:44 → ANH2MED 09-22 04:15
PROVIDERS: Admitting Provider Family Medicine; Emergency Provider Emergency Medicine; PCP Student in an Organized Health Care Education/Training Program; Visit Provider Family Medicine
DX: M84.351A Stress fracture, right femur, initial encounter for fracture (principal); I82.451 Acute embolism and thrombosis of right peroneal vein; I82.441 Acute embolism and thrombosis of right tibial vein; I82.461 Acute embolism and thrombosis of right calf muscular vein; M76.31 Iliotibial band syndrome, right leg; J30.2 Other seasonal allergic rhinitis; F17.200 Nicotine dependence, unspecified, uncomplicated; M81.0 Age-related osteoporosis without current pathological fracture
CPT/HCPCS: 36415; 71046; 73700; 73718; 73721; 78580; 80048; 85025; 85027; 93306; 93971; 96374; 97110; 97116; 97162; 97165; 97530; 97535; 99285; A9270; A9540; J3360